=== PATIENT | female | born 1980 | race Caucasian/White ===

== ENCOUNTER 2016-01-27 08:47 | Inpatient (IN) | payer MEDICAID ==
[~2016-01-27] VITALS: Ht 147.3 cm; Wt 67.5 kg
[2016-01-27 09:06] VITALS: Ht 147.3 cm; Wt 67.5 kg
[2016-01-27] MEDS ORDERED: PRENAT PO (09:08)
[2016-01-27] MEDS: LACTATED RINGER'S 1,000 ML IV SCH ×4 (09:37→18:57)
[2016-01-27 09:58] LABS: ADD UMIC YES; URINE BILIRUBIN (Dip) NEGATIVE (NEGATIVE); URINE BLOOD (Dip) 3+ (NEGATIVE); URINE COLOR LT. YELLOW (YELLOW); URINE KETONES (Dip) 15 (NEGATIVE); URINE LEUKOCYTE ESTERASE (Dip) TRACE (NEGATIVE); URINE NITRITE (Dip) NEGATIVE (NEGATIVE); URINE TOTAL PROTEIN (Dip) NEGATIVE (NEGATIVE); URINE UROBILINOGEN (Dip) 0.2 E.U./dL (0.1-1.0)
[2016-01-27 10:09] LABS: BACTERIA,URINE FEW; SQUAMOUS EPITHELIAL CELL,UR FEW
--- NOTE | 2016-01-27 10:30 | RADRPT ---
PROCEDURE: Limited OB ultrasound CLINICAL INDICATION: Vaginal bleeding, placenta previa TECHNIQUE: Sonographic evaluation to assess the placenta was performed. Transabdominal imaging of the gravid uterus was performed. COMPARISON: No prior exam is available for comparison. FINDINGS: There is a single live intrauterine with cardiac activity, with a heart rate o f 151 bpm. position is breech. The placenta is posterior. There is a complete placenta prev ia. The cervix is closed with a length of 4.5 cm. IMPRESSION: 1. Complete placenta previa. 2. Breech presentation. 3. The cervix is closed with a length of 4.5 cm. RPTAT: HH .Wilma Cristina MD, MD Date Time Electronically viewed and signed by .Wilma Cristina MD, on 01/27/2016 10:30 .G/
[2016-01-27 10:45] LABS: BASOPHILS % 0.4 % (0.0-2.0); EOSINOPHILS # 0.1 10^3/ul (0.0-0.5); EOSINOPHILS % 1.3 % (0.0-7.0); HEMATOCRIT 32.7 % (37.0-47.0); HEMOGLOBIN 11.1 g/dl (12.0-16.0); LYMPHOCYTES # 1.6 10^3/ul (0.8-2.9); LYMPHOCYTES % 14.9 % (15.0-51.0); MEAN CORPUSCULAR HEMOGLOBIN 29.7 pg (29.0-33.0); MEAN CORPUSCULAR HGB CONC 33.8 g/dl (32.0-37.0); MEAN CORPUSCULAR VOLUME 87.8 fl (82.0-101.0); MEAN PLATELET VOLUME 8.1 fl (7.4-10.4); MONOCYTE # 0.8 10^3/ul (0.3-0.9); MONOCYTES % 7.8 % (0.0-11.0); NEUTROPHILS % 75.6 % (39.0-77.0); PLATELET COUNT 288 10^3/UL (140-440); RED BLOOD COUNT 3.72 10^6/ul (4.20-5.40); RED CELL DISTRIBUTION WIDTH 14.3 % (11.5-14.5); UNCORRECTED WBC 10.5 10^3/ul (4.8-10.8); WHITE BLOOD COUNT 10.5 10^3/ul (4.8-10.8)
[2016-01-27 10:47] LABS: CONDITION 1
[2016-01-27] MEDS ORDERED: MAGNESIUM SULFATE 4 GM/100 ML 100 ML IV ONE (11:30)
[2016-01-27] MEDS: MAGNESIUM SULFATE 20 GM/500 ML 500 ML IV SCH ×2 (11:53→22:00)
[2016-01-27] MEDS: BETAMET NA PHOS/AC(6 MG/ML) 5ML INJ IM SCH (16:54)
[2016-01-28] MEDS: LACTATED RINGER'S 1,000 ML IV SCH ×6 (01:30→18:57)
[2016-01-28] MEDS: MAGNESIUM SULFATE 20 GM/500 ML 500 ML IV SCH ×2 (07:10→17:30)
--- NOTE | 2016-01-28 11:56 | HP ---
DATE OF ADMISSION: 01/27/2016 HISTORY OF PRESENT ILLNESS: I was requested to talk to Clotilde Dowd by the dental assistant medical assistant, Dr. España, for prematurity at 26 and 5/7 weeks with vaginal bleeding secondary to placenta previa. Mom is on magnesium sulfate and started on betamethasone. Mom is a 35-year-old 4, para 2, 1 and has 2 living children, 9 and 14-year-old at home. No history of diabetes or hypertension during . She has complete placenta previa and has vaginal bleeding now. EDC is 04/30/2016. Membranes intact. She is B, Rh positive, RPR nonreactive, hepatitis B surface antigen negative, and rubella immune. She remains afebrile since admission yesterday. I have spoken to the mother with the help of an autocad electrical designer and explained to her about very premature babies with extreme low weight, survival of about 75 to 80%, and high risk for long-term problems with oxygen dependency and chronic lung disease, hearing problems, and vision problems, with retinopathy of prematurity and neurological problems with delayed milestones, cerebral palsy, low intelligence, feeding problems and need for special followup in High Risk Followup clinic and by the [facility] after discharge. I have explained to her about respiratory distress syndrome, oxygen dependency, ventilatory assistance, high risk for oxygen high risk for infections, antibiotic therapy, high risk for necrotizing enterocolitis and feeding problems, is high risk for intraventricular hemorrhage and developmental problems, retinopathy of prematurity, hearing problems, jaundice, phototherapy, frequent need for blood product usage and general treatment plan and general procedures done in NICU. Mom seems to understand the severity of the situation and complications with very premature and extreme low weight babies and had appropriate questions that were answered. Thank you very much for allowing me to take part in the care of this patient. We will follow the mom and the baby as needed, attend the delivery and take care of the baby in NICU. Dictated By: NAZ GOODSON/CISCO Conf#: [id number] DID#: [id number] MTDD
--- NOTE | 2016-01-28 12:01 | CONS ---
DATE OF ADMISSION: 01/27/2016 DATE OF CONSULTATION: 01/28/2016 HISTORY OF PRESENT ILLNESS: The patient is a 35-year-old G4 with 2 full term pregnancies, 1 miscarr iage. She is currently at 26 weeks. She was presented with complaint of vaginal bleeding. She has complete placenta previa. She was subsequently placed on magnesium sulfate for tocolysis. She rec eived betamethasone second dose of betamethasone is due today at 4:00 p.m. This morning she had mckenna e change in vision, which is most likely secondary to magnesium sulfide and therefore it will be sto pped. Cervical exam shows the cervix to be closed, about 4 cm dilated. Currently, since the admission to the hospital, she has not had vaginal bleeding. PAST SURGICAL HISTORY: Not significant. OB HISTORY: Per above. REVIEW OF SYSTEMS: Negative except for what is mentioned above. VITAL SIGNS: Stable. PHYSICAL EXAMINATION: Deferred. heart tones reassuring for the gestational age, contractions none. Ultrasound per above. IMPRESSION: Intrauterine at 26 weeks with contractions and vaginal bleeding, comp lete placenta previa on magnesium sulfate which was ordered to be discontinued secondary to change i n vision. She is to receive the second dose of betamethasone today. RECOMMENDATIONS: 1. Discontinue magnesium sulfate. 2. Continue with the hospital care until 24 hours after the second dose of betamethasone. After th at, if the patient is asymptomatic without contractions and no vaginal bleeding, she can be discharg ed home for close followup with her referring MD. Also, she was encouraged to be on modified bed re st at home and present to the hospital with any evidence of labor or vaginal bleeding. Dictated By: NICOLE SALCIDO/NTS Conf#: [id number] DID#: [id number]
[2016-01-28] MEDS: BETAMET NA PHOS/AC(6 MG/ML) 5ML INJ IM SCH (17:29)
[2016-01-29] MEDS: LACTATED RINGER'S 1,000 ML IV SCH ×6 (01:30→23:20)
[2016-01-30] MEDS: LACTATED RINGER'S 1,000 ML IV SCH ×3 (07:16→21:14)
[2016-01-30] MEDS: FERROUS SULFATE (EC) 325 MG TAB PO SCH (09:46)
[2016-01-30] MEDS: MULTIVIT/MIN/FOLATE/IRON/PREN TAB PO SCH (09:46)
[2016-01-30] MEDS: AMOXICILLIN 500 MG CAP PO SCH (21:53)
[2016-01-31] MEDS: LACTATED RINGER'S 1,000 ML IV SCH ×6 (00:01→20:01)
[2016-01-31] MEDS: AMOXICILLIN 500 MG CAP PO SCH ×3 (06:05→22:22)
[2016-01-31] MEDS: FERROUS SULFATE (EC) 325 MG TAB PO SCH (08:59)
[2016-01-31] MEDS: MULTIVIT/MIN/FOLATE/IRON/PREN TAB PO SCH (08:59)
[2016-02-01] MEDS: LACTATED RINGER'S 1,000 ML IV SCH ×4 (03:35→16:40)
[2016-02-01] MEDS: AMOXICILLIN 500 MG CAP PO SCH ×3 (05:55→22:25)
[2016-02-01] MEDS: FERROUS SULFATE (EC) 325 MG TAB PO SCH (09:09)
[2016-02-01] MEDS: MULTIVIT/MIN/FOLATE/IRON/PREN TAB PO SCH (09:09)
[2016-02-01] MEDS: ACETAMINOPHEN 325 MG TAB PO PRN (10:41)
--- NOTE | 2016-02-01 13:22 | PERINOTE ---
Date/Time of Note Date/Time of Note DATE: 02/01/16 TIME: 13:13 Assessment/Recommendations Other Assessments Premature uterine contractions, now largely resolved Placenta previa with multiple prior episodes of bleeding. (Patient hs not had glucose screening) Recommendations: I would favor observing this patient in the hospital for a longer period ( potentially until delivery) both for bleeding and for uterine contractions. I explained to her and her the risk of catastrophic bleeding involved in a placenta previa. Would deliver between 35 and 36 weeks GA by if she continues to have a placenta previa, earlier for bleeding or evidence of maternal or decompensation. Given the possibility of IUGR with the abnormal placentation, I would repeat the ultrasound for EFW every 3-4 weeks. I would perform a fasting blood glucose tomorrow AM to evaluate for gestational diabetes. OB Subjective Free Text/Dictaton Patient with known placenta previa is admitted for an episode of bleeding with uterine contractions. She reports two prior admissions at [facility] for this indication. HD# 6 IUP @ 27W2D Complaints/Overnight events No current bleeding Current Medications Current Medications Prenat Multivit/ Healthcare Representative/Iron/Folic Ac ( S) 1 tab DAILY PO Last administered on 02/01/16at 09:09; Admin Dose 1 TAB; Start 01/30/16 at 09:00 Ferrous Sulfate (Ferrous Sulfate (Ec)) 325 mg DAILY PO Last administered on at 09:09; Admin Dose 325 MG; Start 01/30/16 at 09:00 Amoxicillin 500 mg 500 mg Q8 PO Last administered on 02/01/16at 05:55; Admin Dose 500 MG; Start 01/30/16 at 22:00 Lactated Ringer's (Lr) 1,000 ml @ 125 mls/hr Q8H IV Last administered on 01/31at 11:30; Admin Dose 125 MLS/HR; Start 01/30/16 at 21:12 Acetaminophen (Tylenol Tab) 650 mg Q4H PRN PO PAIN AND OR ELEVATED TEMP Last administered on 02/01/16at 10:41; Admin Dose 650 MG; Start 02/01/16 at 10:30 OB Admission Exam Physical Exam Vitals: BP: 102/66 P: 84 R: 20 T: 98.5 Abdomen: WNL Heart Rate: 150's Accelerations: Accelerations Present Decelerations: No Decelerations Varibility: Moderate Contractions on Admission: >10 Minutes Apart Copies To: CC: TIMUR BATEMAN MD, MARIE H MD Feb 01, 2016 13:22
[2016-02-01] MEDS ORDERED: MAGNESIUM SULFATE 4 GM/100 ML 100 ML IVPB ONE (16:00)
[2016-02-01] MEDS: MAGNESIUM SULFATE 20 GM/500 ML 500 ML IV SCH (16:58)
[2016-02-02] MEDS: MAGNESIUM SULFATE 20 GM/500 ML 500 ML IV SCH ×3 (03:42→23:46)
[2016-02-02] MEDS: LACTATED RINGER'S 1,000 ML IV SCH ×2 (04:45→17:40)
[2016-02-02] MEDS: AMOXICILLIN 500 MG CAP PO SCH ×3 (05:58→21:56)
[2016-02-02] MEDS: FERROUS SULFATE (EC) 325 MG TAB PO SCH (08:37)
[2016-02-02] MEDS: MULTIVIT/MIN/FOLATE/IRON/PREN TAB PO SCH (08:38)
[2016-02-03] MEDS: AMOXICILLIN 500 MG CAP PO SCH ×3 (06:17→22:23)
[2016-02-03] MEDS: LACTATED RINGER'S 1,000 ML IV SCH ×2 (06:18→19:53)
[2016-02-03] MEDS: FERROUS SULFATE (EC) 325 MG TAB PO SCH (09:01)
[2016-02-03] MEDS: MULTIVIT/MIN/FOLATE/IRON/PREN TAB PO SCH (09:01)
[2016-02-03] MEDS: SENNA TAB PO SCH ×2 (14:15→20:57)
[2016-02-03] MEDS: MAGNESIUM SULFATE 20 GM/500 ML 500 ML IV SCH (20:58)
[2016-02-04] MEDS: MAGNESIUM SULFATE 20 GM/500 ML 500 ML IV SCH ×3 (04:30→17:02)
[2016-02-04] MEDS: AMOXICILLIN 500 MG CAP PO SCH ×3 (06:11→21:37)
[2016-02-04] MEDS: LACTATED RINGER'S 1,000 ML IV SCH ×2 (08:31→17:03)
[2016-02-04] MEDS: FERROUS SULFATE (EC) 325 MG TAB PO SCH (09:18)
[2016-02-04] MEDS: MULTIVIT/MIN/FOLATE/IRON/PREN TAB PO SCH (09:18)
[2016-02-04] MEDS: SENNA TAB PO SCH ×2 (09:19→21:36)
[2016-02-05] MEDS: MAGNESIUM SULFATE 20 GM/500 ML 500 ML IV SCH ×4 (02:44→23:59)
[2016-02-05] MEDS: LACTATED RINGER'S 1,000 ML IV SCH ×2 (02:45→15:10)
[2016-02-05] MEDS: AMOXICILLIN 500 MG CAP PO SCH ×3 (06:14→22:13)
[2016-02-05] MEDS: SENNA TAB PO SCH ×2 (09:00→21:07)
[2016-02-05] MEDS: FERROUS SULFATE (EC) 325 MG TAB PO SCH (09:19)
[2016-02-05] MEDS: MULTIVIT/MIN/FOLATE/IRON/PREN TAB PO SCH (09:19)
--- NOTE | 2016-02-05 10:18 | PN ---
Date/Time of Note Date/Time of Note DATE: 02/05/16 TIME: 10:17 OB Subjective Subjective Subjective Indication for admission placenta previa that has been no bleeding since last 24 hours which continue expecting management and observation for leading TAHIRA SUN MD Feb 05, 2016 10:18
[2016-02-05] MEDS: MICONAZOLE 100 MG VAG SUPP VAG SCH (21:07)
[2016-02-06] MEDS: LACTATED RINGER'S 1,000 ML IV SCH ×2 (03:25→17:31)
[2016-02-06] MEDS: FERROUS SULFATE (EC) 325 MG TAB PO SCH (08:57)
[2016-02-06] MEDS: MULTIVIT/MIN/FOLATE/IRON/PREN TAB PO SCH (08:57)
[2016-02-06] MEDS: SENNA TAB PO SCH ×2 (08:57→21:31)
[2016-02-06] MEDS: MAGNESIUM SULFATE 20 GM/500 ML 500 ML IV SCH ×3 (08:58→20:11)
--- NOTE | 2016-02-06 14:01 | PN ---
Date/Time of Note Date/Time of Note DATE: 02/06/16 TIME: 14:01 OB Subjective Subjective Subjective Vital sign a stable resting no bleeding which continue expecting management Laboratory Tests Test 02/06/16 00:20 02/06/16 12:20 Magnesium Level 4.2mg/dl 4.3mg/dl Current Medications Medications (Trade) Dose Ordered Sig/Sara Route PRN Reason Start Time Stop Time Status Last Admin Dose Admin Lactated Ringer's 1,000 ml @ 125 mls/hr Q8H IV 01/27/16 09:30 01/30/16 18:20 DC 01/30/16 14:33 Lactated Ringer's 1,000 ml @ 125 mls/hr Q8H IV 01/27/16 10:57 01/29/16 15:26 DC 01/29/16 07:29 Magnesium Sulfate 100 ml @ 200 mls/hr ONCE ONCE IV 01/27/16 11:30 01/27/16 11:59 DC 01/27/16 11:29 Magnesium Sulfate (Magnesium Sulfate 20 Gm/500 ml) 500 ml @ 50 mls/hr Q10H IV 01/27/16 11:30 01/29/16 01:33 DC 01/28/16 07:10 Betamethasone Acet/Betameth SodPhos (Celestone Soluspan) 12 mg Q24H IM 01/27/16 16:30 01/28/16 16:31 DC 01/28/16 17:29 Prenat Multivit/ Shipping Packer/Iron/Folic Ac ( S) 1 tab DAILY PO 01/30/16 09:00 02/06/16 08:57 Ferrous Sulfate (Ferrous Sulfate (Ec)) 325 mg DAILY PO 01/30/16 09:00 02/06/16 08:57 Amoxicillin 500 mg 500 mg Q8 PO 01/30/16 22:00 02/06/16 00:00 DC 02/05/16 22:13 Lactated Ringer's (Lr) 1,000 ml @ 75 mls/hr [id number] IV 01/30/16 21:12 02/06/16 03:25 Acetaminophen 650 mg 650 mg Q4H PRN PO PAIN AND OR ELEVATED TEMP 02/01/16 10:30 02/01/16 10:41 Magnesium Sulfate 100 ml @ 200 mls/hr ONCE ONCE IVPB 02/01/16 16:00 12/17/16 16:29 DC 02/01/16 16:28 Magnesium Sulfate (Magnesium Sulfate 20 Gm/500 ml) 500 ml @ 50 mls/hr Q10H IV 02/01/16 16:30 02/06/16 08:58 Senna (Senokot) 2 tab BID PO 02/03/16 14:30 02/06/16 08:57 Miconazole (Monistat-7) 1 supp HS VAG 02/05/16 21:00 02/11/16 21:01 02/05/16 21:07 TAHIRA SUN MD Feb 06, 2016 14:01
[2016-02-06] MEDS ORDERED: MAGNESIUM SULFATE 4 GM/100 ML 100 ML IVPB ONE (20:30)
[2016-02-06] MEDS: MICONAZOLE 100 MG VAG SUPP VAG SCH (21:31)
[2016-02-07] MEDS: LACTATED RINGER'S 1,000 ML IV SCH ×2 (06:15→18:47)
[2016-02-07] MEDS: MAGNESIUM SULFATE 20 GM/500 ML 500 ML IV SCH (06:16)
[2016-02-07] MEDS: MULTIVIT/MIN/FOLATE/IRON/PREN TAB PO SCH (08:39)
[2016-02-07] MEDS: FERROUS SULFATE (EC) 325 MG TAB PO SCH (08:39)
[2016-02-07] MEDS: SENNA TAB PO SCH ×2 (08:39→21:18)
--- NOTE | 2016-02-07 14:54 | PN ---
Date/Time of Note Date/Time of Note DATE: 02/07/16 TIME: 14:51 OB Subjective Subjective Subjective 27 weeks complicated with placenta previa with uterine contraction on admission she was placed on magnesium sulfate which was discontinued at 10:40 AM today perinatology recommended to start Procardia as of 6:00 PM today currently patient has less than 4 contraction per our mildly felt and no further bleeding TAHIRA SUN MD Feb 07, 2016 14:54
--- NOTE | 2016-02-07 14:55 | RADRPT ---
PROCEDURE: US OB. CLINICAL INDICATION: Size and dates , complete placenta previa TECHNIQUE: Multiple sonographic images of the pelvis and gravid uterus were obtained. The images were reviewed on a PACS workstation. COMPARISON: 01/27/16 FINDINGS: There is a single viable intrauterine gestation. Cardiac activity is present with 126 beats per min brandy. There is a vertex presentation. The placenta is posterior. There is complete placenta previa. Measurements were made in order to determine age. The results are as follows: BPD =7.2 cm HC =26.2 cm AC =24.8 cm FL =4.8 cm Estimated gestational age of approximately 28 weeks and 1 day based on ultrasound measurements. Clinical age: 28 weeks and 1 day. The estimated date of delivery is 04/30/16, based on ultrasound measurements. The EFW = 1165 g, 33%, based on LMP age. RPTAT: AA IMPRESSION: Single viable intrauterine gestation of approximately 28 weeks and 1 day based on ultrasound measur ements. Posterior with complete placenta previa. .Bismark Sykes MD, MD Date Time Electronically viewed and signed by .Bismark Sykes MD, on 02/07/2016 14:55 .S/
[2016-02-07] MEDS: NIFEdipine 10 MG CAP PO SCH (17:29)
[2016-02-07] MEDS ORDERED: NIFEdipine 10 MG CAP PO SCH (18:00)
[2016-02-07] MEDS: MICONAZOLE 100 MG VAG SUPP VAG SCH (21:18)
[2016-02-08] MEDS: NIFEdipine 10 MG CAP PO SCH ×4 (00:02→17:45)
[2016-02-08] MEDS: LACTATED RINGER'S 1,000 ML IV SCH ×2 (07:42→19:41)
[2016-02-08] MEDS: FERROUS SULFATE (EC) 325 MG TAB PO SCH (08:54)
[2016-02-08] MEDS: MULTIVIT/MIN/FOLATE/IRON/PREN TAB PO SCH (08:54)
[2016-02-08] MEDS: SENNA TAB PO SCH ×2 (08:54→21:21)
[2016-02-08 12:28] LABS: BASOPHILS % 0.3 % (0.0-2.0); EOSINOPHILS # 0.1 10^3/ul (0.0-0.5); HEMATOCRIT 36.3 % (37.0-47.0); HEMOGLOBIN 12.2 g/dl (12.0-16.0); LYMPHOCYTES # 1.6 10^3/ul (0.8-2.9); LYMPHOCYTES % 14.1 % (15.0-51.0); MEAN CORPUSCULAR HGB CONC 33.7 g/dl (32.0-37.0); MEAN PLATELET VOLUME 7.4 fl (7.4-10.4); MONOCYTE # 0.7 10^3/ul (0.3-0.9); MONOCYTES % 6.4 % (0.0-11.0); NEUTROPHIL # 8.7 10^3/ul (1.6-7.5); NEUTROPHILS % 78.2 % (39.0-77.0); PLATELET COUNT 291 10^3/UL (140-440); RED BLOOD COUNT 4.07 10^6/ul (4.20-5.40); UNCORRECTED WBC 11.2 10^3/ul (4.8-10.8); WHITE BLOOD COUNT 11.2 10^3/ul (4.8-10.8)
[2016-02-08 12:40] LABS: CONDITION 1
[2016-02-08 12:42] LABS: INR 0.99; PROTIME 13.1 Sec (12.2-14.2)
[2016-02-08 12:43] LABS: ALBUMIN 3.4 g/dl (3.3-4.9); PARTIAL THROMBOPLASTIN TIME 25.7 Sec (25.0-35.0)
[2016-02-08 12:44] LABS: POTASSIUM 4.1 mmol/L (3.5-5.1)
[2016-02-08 12:46] LABS: BILIRUBIN,INDIRECT 0.3 mg/dl (0-1.1); BILIRUBIN,TOTAL 0.3 mg/dl (0.2-1.3); CREATININE 0.43 mg/dl (0.44-1.00); TOTAL PROTEIN 6.8 g/dl (6.1-8.1)
[2016-02-08 12:47] LABS: CALCIUM 9.3 mg/dl (8.4-10.2)
--- NOTE | 2016-02-08 12:58 | PN ---
Date/Time of Note Date/Time of Note DATE: 02/08/16 TIME: 12:55 OB Subjective Subjective Subjective Vital sign is stable no bleeding patient in bed rest no complain of contraction currently on nifedipine 20 mg every 6 hours. TAHIRA SUN MD Feb 08, 2016 12:58
[2016-02-08] MEDS: MICONAZOLE 100 MG VAG SUPP VAG SCH (21:21)
[2016-02-09] MEDS: NIFEdipine 10 MG CAP PO SCH ×4 (00:14→17:54)
[2016-02-09] MEDS: SENNA TAB PO SCH ×2 (08:55→20:48)
[2016-02-09] MEDS: FERROUS SULFATE (EC) 325 MG TAB PO SCH (08:55)
[2016-02-09] MEDS: MULTIVIT/MIN/FOLATE/IRON/PREN TAB PO SCH (08:55)
[2016-02-09] MEDS: LACTATED RINGER'S 1,000 ML IV SCH ×2 (09:05→17:43)
--- NOTE | 2016-02-09 11:20 | PN ---
Date/Time of Note Date/Time of Note DATE: 02/09/16 TIME: 11:18 OB Subjective Subjective Subjective CONDITION NO CHANGE OF YESTERDAY,WILL CONTINUE EXPECTING MANAGEMENT TAHIRA SUN MD Feb 09, 2016 11:20
[2016-02-09] MEDS: MICONAZOLE 100 MG VAG SUPP VAG SCH (20:48)
[2016-02-10] MEDS: NIFEdipine 10 MG CAP PO SCH ×4 (00:08→18:22)
[2016-02-10] MEDS: LACTATED RINGER'S 1,000 ML IV SCH ×2 (06:06→19:32)
[2016-02-10] MEDS: FERROUS SULFATE (EC) 325 MG TAB PO SCH (08:42)
[2016-02-10] MEDS: MULTIVIT/MIN/FOLATE/IRON/PREN TAB PO SCH (08:43)
[2016-02-10] MEDS: SENNA TAB PO SCH ×2 (08:43→21:31)
--- NOTE | 2016-02-10 10:43 | PN ---
Date/Time of Note Date/Time of Note DATE: 02/10/16 TIME: 10:39 OB Subjective Subjective Subjective vital sign stable ,afebrile ,no more than one or two contraction per hour will continue present treatment with Procardia 20MG Q 6 H. TAHIRA SUN MD Feb 10, 2016 10:43
[2016-02-10] MEDS: MICONAZOLE 100 MG VAG SUPP VAG SCH (21:31)
[2016-02-11] MEDS: NIFEdipine 10 MG CAP PO SCH ×4 (00:04→17:43)
[2016-02-11] MEDS: MULTIVIT/MIN/FOLATE/IRON/PREN TAB PO SCH (09:16)
[2016-02-11] MEDS: FERROUS SULFATE (EC) 325 MG TAB PO SCH (09:17)
[2016-02-11] MEDS: SENNA TAB PO SCH ×2 (09:17→21:14)
[2016-02-11] MEDS: LACTATED RINGER'S 1,000 ML IV SCH ×2 (10:11→21:25)
[2016-02-11] MEDS: BETAMET NA PHOS/AC(6 MG/ML) 5ML INJ IM SCH (16:27)
[2016-02-11] MEDS: MICONAZOLE 100 MG VAG SUPP VAG SCH (21:13)
[2016-02-12] MEDS: NIFEdipine 10 MG CAP PO SCH ×4 (00:21→17:41)
[2016-02-12] MEDS: LACTATED RINGER'S 1,000 ML IV SCH ×2 (08:38→17:41)
[2016-02-12] MEDS: FERROUS SULFATE (EC) 325 MG TAB PO SCH (08:38)
[2016-02-12] MEDS: MULTIVIT/MIN/FOLATE/IRON/PREN TAB PO SCH (08:38)
[2016-02-12] MEDS: SENNA TAB PO SCH ×2 (08:38→21:19)
[2016-02-12] MEDS: BETAMET NA PHOS/AC(6 MG/ML) 5ML INJ IM SCH (16:16)
[2016-02-13] MEDS: NIFEdipine 10 MG CAP PO SCH ×4 (06:01→17:50)
[2016-02-13] MEDS: LACTATED RINGER'S 1,000 ML IV SCH (06:02)
[2016-02-13] MEDS: MULTIVIT/MIN/FOLATE/IRON/PREN TAB PO SCH (08:58)
[2016-02-13] MEDS: FERROUS SULFATE (EC) 325 MG TAB PO SCH (08:58)
[2016-02-13] MEDS: SENNA TAB PO SCH ×2 (08:58→21:01)
[2016-02-14] MEDS: NIFEdipine 10 MG CAP PO SCH ×4 (06:01→18:03)
[2016-02-14] MEDS: MULTIVIT/MIN/FOLATE/IRON/PREN TAB PO SCH (09:17)
[2016-02-14] MEDS: FERROUS SULFATE (EC) 325 MG TAB PO SCH (09:17)
[2016-02-14] MEDS: SENNA TAB PO SCH ×2 (09:17→20:58)
[2016-02-14] MEDS ORDERED: LACTATED RINGER'S 1,000 ML IV ONE (18:00)
[2016-02-14] MEDS: LACTATED RINGER'S 1,000 ML IV SCH (19:00)
[2016-02-15] MEDS: NIFEdipine 10 MG CAP PO SCH ×4 (00:03→17:52)
[2016-02-15] MEDS: LACTATED RINGER'S 1,000 ML IV SCH ×3 (03:05→19:01)
[2016-02-15] MEDS: SENNA TAB PO SCH ×2 (09:00→21:12)
[2016-02-15] MEDS: MULTIVIT/MIN/FOLATE/IRON/PREN TAB PO SCH (09:22)
[2016-02-15] MEDS: FERROUS SULFATE (EC) 325 MG TAB PO SCH (09:22)
--- NOTE | 2016-02-15 14:13 | QN ---
Documentation Comment As noted previously (see my note of 01/31), I would favor continued hospitalization for this patient until delivery due to the risk of catastrophic bleeding with placenta previa, especially as she has had several prior episodes of bleeding. BRONWYN RABAGO MD Feb 15, 2016 14:13
[2016-02-16] MEDS: NIFEdipine 10 MG CAP PO SCH ×4 (00:19→17:51)
[2016-02-16] MEDS: LACTATED RINGER'S 1,000 ML IV SCH ×3 (04:59→21:27)
[2016-02-16] MEDS: SENNA TAB PO SCH ×2 (09:23→21:31)
[2016-02-16] MEDS: FERROUS SULFATE (EC) 325 MG TAB PO SCH (09:23)
[2016-02-16] MEDS: MULTIVIT/MIN/FOLATE/IRON/PREN TAB PO SCH (09:23)
[2016-02-17] MEDS: NIFEdipine 10 MG CAP PO SCH ×4 (00:09→17:35)
[2016-02-17] MEDS: LACTATED RINGER'S 1,000 ML IV SCH ×4 (05:18→21:21)
[2016-02-17] MEDS: MULTIVIT/MIN/FOLATE/IRON/PREN TAB PO SCH (08:49)
[2016-02-17] MEDS: FERROUS SULFATE (EC) 325 MG TAB PO SCH (08:49)
[2016-02-17] MEDS: SENNA TAB PO SCH ×2 (08:50→21:22)
[2016-02-18] MEDS: NIFEdipine 10 MG CAP PO SCH ×5 (00:04→23:48)
[2016-02-18] MEDS: LACTATED RINGER'S 1,000 ML IV SCH ×3 (05:29→21:14)
[2016-02-18] MEDS: SENNA TAB PO SCH ×2 (09:22→23:48)
[2016-02-18] MEDS: MULTIVIT/MIN/FOLATE/IRON/PREN TAB PO SCH (09:22)
[2016-02-18] MEDS: FERROUS SULFATE (EC) 325 MG TAB PO SCH (09:22)
[2016-02-19] MEDS: LACTATED RINGER'S 1,000 ML IV SCH ×3 (04:54→21:40)
[2016-02-19] MEDS: NIFEdipine 10 MG CAP PO SCH ×3 (06:28→18:02)
[2016-02-19] MEDS: FERROUS SULFATE (EC) 325 MG TAB PO SCH (08:50)
[2016-02-19] MEDS: SENNA TAB PO SCH ×2 (08:50→21:17)
[2016-02-19] MEDS: MULTIVIT/MIN/FOLATE/IRON/PREN TAB PO SCH (08:50)
[2016-02-20] MEDS: NIFEdipine 10 MG CAP PO SCH ×4 (00:08→18:00)
[2016-02-20] MEDS: LACTATED RINGER'S 1,000 ML IV SCH ×3 (05:41→22:28)
[2016-02-20] MEDS: SENNA TAB PO SCH ×2 (09:32→21:40)
[2016-02-20] MEDS: FERROUS SULFATE (EC) 325 MG TAB PO SCH (09:32)
[2016-02-20] MEDS: MULTIVIT/MIN/FOLATE/IRON/PREN TAB PO SCH (09:32)
[2016-02-21] MEDS: NIFEdipine 10 MG CAP PO SCH ×4 (00:16→17:37)
[2016-02-21] MEDS: LACTATED RINGER'S 1,000 ML IV SCH ×3 (06:15→21:00)
[2016-02-21] MEDS: MULTIVIT/MIN/FOLATE/IRON/PREN TAB PO SCH (08:39)
[2016-02-21] MEDS: SENNA TAB PO SCH ×2 (08:39→21:02)
[2016-02-21] MEDS: FERROUS SULFATE (EC) 325 MG TAB PO SCH (08:39)
[2016-02-22] MEDS: NIFEdipine 10 MG CAP PO SCH ×5 (00:03→23:56)
[2016-02-22] MEDS: LACTATED RINGER'S 1,000 ML IV SCH ×2 (05:52→15:39)
[2016-02-22] MEDS: MULTIVIT/MIN/FOLATE/IRON/PREN TAB PO SCH (08:46)
[2016-02-22] MEDS: SENNA TAB PO SCH ×2 (08:46→21:00)
[2016-02-22] MEDS: FERROUS SULFATE (EC) 325 MG TAB PO SCH (08:46)
[2016-02-23] MEDS: LACTATED RINGER'S 1,000 ML IV SCH ×2 (04:34→17:40)
[2016-02-23] MEDS: NIFEdipine 10 MG CAP PO SCH ×4 (06:01→23:54)
[2016-02-23] MEDS: SENNA TAB PO SCH ×2 (08:56→21:09)
[2016-02-23] MEDS: MULTIVIT/MIN/FOLATE/IRON/PREN TAB PO SCH (08:56)
[2016-02-23] MEDS: FERROUS SULFATE (EC) 325 MG TAB PO SCH (08:56)
--- NOTE | 2016-02-23 21:22 | QN ---
Documentation Comment HD # 27. Complete previa, admitted for the duration after several episodes of bleeding.Recieved steroids 01/26, and 01/27 and a rescue dose 02/10 and 02/11. Was on Magnesium initially, now on Procardia. No bleeding. No UC's. NST q shift. Continuous toco. Pt in reasonably good spirits considering but really misses her children. PLan: Continue care. ELIDIA PRATHER MD Feb 23, 2016 21:22
[2016-02-24] MEDS: NIFEdipine 10 MG CAP PO SCH ×3 (06:07→18:09)
[2016-02-24] MEDS: LACTATED RINGER'S 1,000 ML IV SCH ×3 (08:15→20:04)
[2016-02-24] MEDS: FERROUS SULFATE (EC) 325 MG TAB PO SCH (08:30)
[2016-02-24] MEDS: SENNA TAB PO SCH ×2 (08:30→21:01)
[2016-02-24] MEDS: MULTIVIT/MIN/FOLATE/IRON/PREN TAB PO SCH (08:30)
[2016-02-25] MEDS: NIFEdipine 10 MG CAP PO SCH ×4 (00:04→17:39)
[2016-02-25] MEDS: LACTATED RINGER'S 1,000 ML IV SCH ×3 (04:14→20:36)
[2016-02-25] MEDS: FERROUS SULFATE (EC) 325 MG TAB PO SCH (09:25)
[2016-02-25] MEDS: MULTIVIT/MIN/FOLATE/IRON/PREN TAB PO SCH (09:25)
[2016-02-25] MEDS: SENNA TAB PO SCH ×2 (09:26→21:27)
--- NOTE | 2016-02-25 21:02 | PN ---
Date/Time of Note Date/Time of Note DATE: 02/25/16 TIME: 20:58 OB Subjective Subjective Subjective Patient has no complaint. OB Objective Objective Objective Afebrile VSS Strip Reactive Abdomen: WNL Heart Rate: 140's Accelerations: Accelerations Present Decelerations: No Decelerations Varibility: Moderate Contractions on Admission: None OB Assessment/Plan Reason for admission: other Other Assessment: Placenta previa Plan: Other Other plan: Continue with in hospital care. TIMUR BATEMAN MD Feb 25, 2016 21:01
[2016-02-26] MEDS: NIFEdipine 10 MG CAP PO SCH ×4 (01:12→17:29)
[2016-02-26] MEDS: LACTATED RINGER'S 1,000 ML IV SCH ×3 (05:47→21:43)
[2016-02-26] MEDS: SENNA TAB PO SCH ×2 (08:38→21:43)
[2016-02-26] MEDS: MULTIVIT/MIN/FOLATE/IRON/PREN TAB PO SCH (08:38)
[2016-02-26] MEDS: FERROUS SULFATE (EC) 325 MG TAB PO SCH (08:38)
--- NOTE | 2016-02-26 14:13 | QN ---
Documentation Comment Patient has no complaint. Afebrile VSS Strip Reactive Continue with in hospital care. TIMUR BATEMAN MD Feb 26, 2016 14:12
[2016-02-27] MEDS: NIFEdipine 10 MG CAP PO SCH ×5 (00:28→23:56)
[2016-02-27] MEDS: LACTATED RINGER'S 1,000 ML IV SCH ×3 (05:29→20:39)
[2016-02-27] MEDS: FERROUS SULFATE (EC) 325 MG TAB PO SCH (08:56)
[2016-02-27] MEDS: MULTIVIT/MIN/FOLATE/IRON/PREN TAB PO SCH (08:56)
[2016-02-27] MEDS: SENNA TAB PO SCH ×2 (08:56→21:36)
--- NOTE | 2016-02-27 20:42 | QN ---
Documentation Comment Patient has no complaint. Afebrile VSS Strip Reactive Continue with in hospital care. TIMUR BATEMAN MD Feb 27, 2016 20:42
[2016-02-27 21:25] LABS: BASOPHILS % 0.4 % (0.0-2.0); EOSINOPHILS # 0.1 10^3/ul (0.0-0.5); EOSINOPHILS % 1.4 % (0.0-7.0); HEMATOCRIT 33.6 % (37.0-47.0); HEMOGLOBIN 11.6 g/dl (12.0-16.0); LYMPHOCYTES # 2.2 10^3/ul (0.8-2.9); LYMPHOCYTES % 20.6 % (15.0-51.0); MEAN CORPUSCULAR HEMOGLOBIN 30.2 pg (29.0-33.0); MEAN CORPUSCULAR HGB CONC 34.5 g/dl (32.0-37.0); MEAN CORPUSCULAR VOLUME 87.6 fl (82.0-101.0); MEAN PLATELET VOLUME 7.3 fl (7.4-10.4); MONOCYTE # 0.9 10^3/ul (0.3-0.9); MONOCYTES % 8.6 % (0.0-11.0); NEUTROPHIL # 7.3 10^3/ul (1.6-7.5); PLATELET COUNT 220 10^3/UL (140-440); RED BLOOD COUNT 3.83 10^6/ul (4.20-5.40); RED CELL DISTRIBUTION WIDTH 14.2 % (11.5-14.5); UNCORRECTED WBC 10.5 10^3/ul (4.8-10.8); WHITE BLOOD COUNT 10.5 10^3/ul (4.8-10.8)
[2016-02-27 21:26] LABS: CONDITION 1
[2016-02-27 21:39] LABS: ADD UMIC YES; URINE BILIRUBIN (Dip) NEGATIVE (NEGATIVE); URINE BLOOD (Dip) TRACE (NEGATIVE); URINE COLOR LT. YELLOW (YELLOW); URINE GLUCOSE (Dip) NEGATIVE (NEGATIVE); URINE KETONES (Dip) NEGATIVE (NEGATIVE); URINE LEUKOCYTE ESTERASE (Dip) NEGATIVE (NEGATIVE); URINE NITRITE (Dip) NEGATIVE (NEGATIVE); URINE TOTAL PROTEIN (Dip) NEGATIVE (NEGATIVE); URINE UROBILINOGEN (Dip) 0.2 E.U./dL (0.1-1.0)
[2016-02-27 22:09] LABS: BACTERIA,URINE FEW; SQUAMOUS EPITHELIAL CELL,UR MODERATE; URINE RBCS 0-2 /HPF (0)
[2016-02-28] MEDS: LACTATED RINGER'S 1,000 ML IV SCH ×3 (04:21→19:33)
[2016-02-28] MEDS: NIFEdipine 10 MG CAP PO SCH ×4 (05:58→23:53)
[2016-02-28] MEDS: FERROUS SULFATE (EC) 325 MG TAB PO SCH (08:52)
[2016-02-28] MEDS: MULTIVIT/MIN/FOLATE/IRON/PREN TAB PO SCH (08:52)
[2016-02-28] MEDS: SENNA TAB PO SCH ×2 (08:54→20:53)
--- NOTE | 2016-02-28 20:13 | QN ---
Documentation Comment Patient had some vaginal bleding this morning. No complaint now. Afebrile VSS Strip Reactive Continue with in hospital care. TIMUR BATEMAN MD Feb 28, 2016 20:12
[2016-02-29] MEDS: LACTATED RINGER'S 1,000 ML IV SCH ×3 (03:20→19:44)
[2016-02-29] MEDS: NIFEdipine 10 MG CAP PO SCH ×3 (06:04→17:37)
[2016-02-29] MEDS: FERROUS SULFATE (EC) 325 MG TAB PO SCH ×2 (08:52→20:48)
[2016-02-29] MEDS: MULTIVIT/MIN/FOLATE/IRON/PREN TAB PO SCH (08:52)
[2016-02-29] MEDS: SENNA TAB PO SCH ×2 (08:53→20:48)
--- NOTE | 2016-02-29 19:23 | QN ---
Documentation Comment Patient has slight vaginal bleeding last night. No complaint now. Afebrile VSS Strip Reactive Continue with present care. TIMUR BATEMAN MD Feb 29, 2016 19:22
[2016-03-01] MEDS: NIFEdipine 10 MG CAP PO SCH ×4 (00:12→17:57)
[2016-03-01] MEDS: LACTATED RINGER'S 1,000 ML IV SCH ×3 (03:36→20:51)
[2016-03-01] MEDS: MULTIVIT/MIN/FOLATE/IRON/PREN TAB PO SCH (09:10)
[2016-03-01] MEDS: SENNA TAB PO SCH ×2 (09:10→20:51)
[2016-03-01] MEDS: FERROUS SULFATE (EC) 325 MG TAB PO SCH ×2 (09:12→20:51)
--- NOTE | 2016-03-01 17:27 | QN ---
Documentation Comment No complaint. Afebrile VSS Tracing Reactive Continue with in hospital care. TIMUR BATEMAN MD Mar 01, 2016 17:27
[2016-03-02] MEDS: NIFEdipine 10 MG CAP PO SCH ×5 (00:13→23:39)
[2016-03-02] MEDS: LACTATED RINGER'S 1,000 ML IV SCH ×4 (04:28→22:07)
[2016-03-02] MEDS: FERROUS SULFATE (EC) 325 MG TAB PO SCH ×2 (08:40→20:55)
[2016-03-02] MEDS: MULTIVIT/MIN/FOLATE/IRON/PREN TAB PO SCH (08:40)
[2016-03-02] MEDS: SENNA TAB PO SCH ×2 (08:40→20:55)
--- NOTE | 2016-03-02 21:47 | QN ---
Documentation Comment Patient had contractions earlier, but denies any pain now. Afebrile VSS Strip Reactive Continue with in hospital care. TIMUR BATEMAN MD Mar 02, 2016 21:47
[2016-03-03] MEDS: LACTATED RINGER'S 1,000 ML IV SCH ×3 (05:53→22:43)
[2016-03-03] MEDS: NIFEdipine 10 MG CAP PO SCH ×3 (05:58→17:30)
[2016-03-03] MEDS: FERROUS SULFATE (EC) 325 MG TAB PO SCH ×2 (09:18→20:53)
[2016-03-03] MEDS: MULTIVIT/MIN/FOLATE/IRON/PREN TAB PO SCH (09:18)
[2016-03-03] MEDS: SENNA TAB PO SCH ×2 (09:19→20:53)
--- NOTE | 2016-03-03 12:59 | QN ---
Documentation Comment No complaint. Afebrile VSS Strip Reactive Continue with present care. TIMUR BATEMAN MD Mar 03, 2016 12:59
[2016-03-04] MEDS: NIFEdipine 10 MG CAP PO SCH ×5 (00:10→23:51)
[2016-03-04] MEDS: LACTATED RINGER'S 1,000 ML IV SCH ×3 (06:16→23:51)
[2016-03-04] MEDS: SENNA TAB PO SCH ×2 (08:46→21:13)
[2016-03-04] MEDS: MULTIVIT/MIN/FOLATE/IRON/PREN TAB PO SCH (08:46)
[2016-03-04] MEDS: FERROUS SULFATE (EC) 325 MG TAB PO SCH ×2 (08:46→21:13)
--- NOTE | 2016-03-04 19:09 | QN ---
Documentation Comment No complaint. Afebrile VSS Strip Reactive Continue with in hospital care. TIMUR BATEMAN MD Mar 04, 2016 19:09
[2016-03-05] MEDS: NIFEdipine 10 MG CAP PO SCH ×4 (06:22→23:50)
[2016-03-05] MEDS: LACTATED RINGER'S 1,000 ML IV SCH ×3 (08:15→23:51)
[2016-03-05] MEDS: FERROUS SULFATE (EC) 325 MG TAB PO SCH ×2 (08:47→21:18)
[2016-03-05] MEDS: MULTIVIT/MIN/FOLATE/IRON/PREN TAB PO SCH (08:48)
[2016-03-05] MEDS: SENNA TAB PO SCH ×2 (08:48→21:18)
--- NOTE | 2016-03-05 21:46 | QN ---
Documentation Comment No complaint Afebrile VSS Strip Reactive Continue present care. TIMUR BATEMAN MD Mar 05, 2016 21:46
[2016-03-06] MEDS: NIFEdipine 10 MG CAP PO SCH ×3 (06:36→17:51)
[2016-03-06] MEDS: LACTATED RINGER'S 1,000 ML IV SCH ×3 (07:33→20:29)
[2016-03-06] MEDS: SENNA TAB PO SCH ×2 (08:49→21:01)
[2016-03-06] MEDS: FERROUS SULFATE (EC) 325 MG TAB PO SCH ×2 (08:49→21:01)
[2016-03-06] MEDS: MULTIVIT/MIN/FOLATE/IRON/PREN TAB PO SCH (08:49)
--- NOTE | 2016-03-06 21:11 | QN ---
Documentation Comment No complaint. Afebrile VSS Strip Reactive Continue with present care. TIMUR BATEMAN MD Mar 06, 2016 21:11
[2016-03-07] MEDS: NIFEdipine 10 MG CAP PO SCH ×5 (00:10→23:38)
[2016-03-07] MEDS: SENNA TAB PO SCH ×2 (08:56→21:18)
[2016-03-07] MEDS: FERROUS SULFATE (EC) 325 MG TAB PO SCH ×2 (08:56→21:17)
[2016-03-07] MEDS: MULTIVIT/MIN/FOLATE/IRON/PREN TAB PO SCH (09:00)
[2016-03-07] MEDS: LACTATED RINGER'S 1,000 ML IV SCH ×2 (16:20→22:31)
--- NOTE | 2016-03-07 18:09 | QN ---
Documentation Comment No complaint. Afebrile BP 140/85 Strip Reactive Will start 24 hr urine collection and PIH labs. TIMUR BATEMAN MD Mar 07, 2016 18:09
[2016-03-07 18:35] LABS: BASOPHILS % 0.4 % (0.0-2.0); EOSINOPHILS # 0.2 10^3/ul (0.0-0.5); EOSINOPHILS % 2.1 % (0.0-7.0); HEMATOCRIT 33.9 % (37.0-47.0); HEMOGLOBIN 11.6 g/dl (12.0-16.0); LYMPHOCYTES # 1.9 10^3/ul (0.8-2.9); LYMPHOCYTES % 18.2 % (15.0-51.0); MEAN CORPUSCULAR HEMOGLOBIN 29.8 pg (29.0-33.0); MEAN CORPUSCULAR HGB CONC 34.2 g/dl (32.0-37.0); MEAN CORPUSCULAR VOLUME 87.1 fl (82.0-101.0); MEAN PLATELET VOLUME 7.4 fl (7.4-10.4); MONOCYTE # 0.8 10^3/ul (0.3-0.9); MONOCYTES % 7.5 % (0.0-11.0); NEUTROPHIL # 7.4 10^3/ul (1.6-7.5); NEUTROPHILS % 71.8 % (39.0-77.0); PLATELET COUNT 233 10^3/UL (140-440); RED CELL DISTRIBUTION WIDTH 14.4 % (11.5-14.5); UNCORRECTED WBC 10.3 10^3/ul (4.8-10.8); WHITE BLOOD COUNT 10.3 10^3/ul (4.8-10.8)
[2016-03-07 18:38] LABS: CONDITION 1
[2016-03-07 18:43] LABS: POTASSIUM 3.8 mmol/L (3.5-5.1)
[2016-03-07 18:44] LABS: CREATININE 0.58 mg/dl (0.44-1.00)
[2016-03-07 18:45] LABS: ALBUMIN/GLOBULIN RATIO 0.93; BILIRUBIN,INDIRECT 0.1 mg/dl (0-1.1); BILIRUBIN,TOTAL 0.1 mg/dl (0.2-1.3); TOTAL PROTEIN 6.2 g/dl (6.1-8.1); URIC ACID 5.6 mg/dl (3.1-7.9)
[2016-03-07 18:46] LABS: CALCIUM 8.7 mg/dl (8.4-10.2)
--- NOTE | 2016-03-08 01:53 | QN ---
Documentation Comment No complaint. Afebrile VSS Strip Reactive Plt, AST, ALT normal. Continue with 24 hr urine collection. TIMUR BATEMAN MD Mar 08, 2016 01:53
[2016-03-08] MEDS: NIFEdipine 10 MG CAP PO SCH ×4 (06:08→23:57)
[2016-03-08] MEDS: SENNA TAB PO SCH ×2 (09:23→20:45)
[2016-03-08] MEDS: FERROUS SULFATE (EC) 325 MG TAB PO SCH ×2 (09:23→20:44)
[2016-03-08] MEDS: MULTIVIT/MIN/FOLATE/IRON/PREN TAB PO SCH (09:23)
[2016-03-08] MEDS: LACTATED RINGER'S 1,000 ML IV SCH ×3 (19:00→22:22)
[2016-03-08 20:12] LABS: SCRET 0.58 mg/dl (0.44-1.00)
[2016-03-09] MEDS: NIFEdipine 10 MG CAP PO SCH ×3 (05:59→18:15)
[2016-03-09] MEDS: SENNA TAB PO SCH ×2 (08:51→21:27)
[2016-03-09] MEDS: FERROUS SULFATE (EC) 325 MG TAB PO SCH ×2 (08:51→21:27)
[2016-03-09] MEDS: MULTIVIT/MIN/FOLATE/IRON/PREN TAB PO SCH (08:51)
[2016-03-09] MEDS: LACTATED RINGER'S 1,000 ML IV SCH (11:38)
[2016-03-09] MEDS: ACETAMINOPHEN 325 MG TAB PO PRN ×2 (16:21→23:12)
[2016-03-09 18:56] LABS: BASOPHIL # 0.1 10^3/ul (0.0-0.1); BASOPHILS % 0.5 % (0.0-2.0); EOSINOPHILS # 0.2 10^3/ul (0.0-0.5); EOSINOPHILS % 1.7 % (0.0-7.0); HEMATOCRIT 36.4 % (37.0-47.0); HEMOGLOBIN 12.3 g/dl (12.0-16.0); LYMPHOCYTES # 2.1 10^3/ul (0.8-2.9); LYMPHOCYTES % 19.4 % (15.0-51.0); MEAN CORPUSCULAR HEMOGLOBIN 29.6 pg (29.0-33.0); MEAN CORPUSCULAR HGB CONC 33.7 g/dl (32.0-37.0); MEAN CORPUSCULAR VOLUME 87.7 fl (82.0-101.0); MEAN PLATELET VOLUME 7.4 fl (7.4-10.4); MONOCYTE # 0.9 10^3/ul (0.3-0.9); MONOCYTES % 8.1 % (0.0-11.0); NEUTROPHIL # 7.6 10^3/ul (1.6-7.5); NEUTROPHILS % 70.3 % (39.0-77.0); PLATELET COUNT 235 10^3/UL (140-440); RED BLOOD COUNT 4.15 10^6/ul (4.20-5.40); RED CELL DISTRIBUTION WIDTH 14.1 % (11.5-14.5); UNCORRECTED WBC 10.8 10^3/ul (4.8-10.8); WHITE BLOOD COUNT 10.8 10^3/ul (4.8-10.8)
[2016-03-09 19:06] LABS: ALBUMIN 3.2 g/dl (3.3-4.9)
[2016-03-09 19:09] LABS: ALBUMIN/GLOBULIN RATIO 0.96; BILIRUBIN,INDIRECT 0.1 mg/dl (0-1.1); BILIRUBIN,TOTAL 0.1 mg/dl (0.2-1.3); CREATININE 0.58 mg/dl (0.44-1.00); TOTAL PROTEIN 6.5 g/dl (6.1-8.1)
[2016-03-09 19:10] LABS: CALCIUM 9.1 mg/dl (8.4-10.2); URIC ACID 5.3 mg/dl (3.1-7.9)
[2016-03-09 19:11] LABS: CONDITION 1
[2016-03-09 19:13] LABS: ADD UMIC YES; URINE BILIRUBIN (Dip) NEGATIVE (NEGATIVE); URINE BLOOD (Dip) TRACE (NEGATIVE); URINE COLOR LT. YELLOW (YELLOW); URINE GLUCOSE (Dip) NEGATIVE (NEGATIVE); URINE KETONES (Dip) NEGATIVE (NEGATIVE); URINE LEUKOCYTE ESTERASE (Dip) NEGATIVE (NEGATIVE); URINE NITRITE (Dip) NEGATIVE (NEGATIVE); URINE TOTAL PROTEIN (Dip) NEGATIVE (NEGATIVE); URINE UROBILINOGEN (Dip) 0.2 E.U./dL (0.1-1.0)
--- NOTE | 2016-03-09 19:25 | QN ---
Documentation Comment Patient had headache earlier, feels better after taking Tylenol. Afebrile VSS Strip Reactive Await result of 24 hr urine protein. TIMUR BATEMAN MD Mar 09, 2016 19:25
[2016-03-09 19:42] LABS: BACTERIA,URINE MODERATE; URINE RBCS 0-2 /HPF (0)
[2016-03-09] MEDS ORDERED: ACETAMINOPHEN 500 MG TAB PO PRN (21:30)
[2016-03-10] MEDS: NIFEdipine 10 MG CAP PO SCH ×4 (00:15→17:48)
[2016-03-10] MEDS: LACTATED RINGER'S 1,000 ML IV SCH ×3 (01:07→16:32)
[2016-03-10] MEDS: SENNA TAB PO SCH ×2 (09:01→21:18)
[2016-03-10] MEDS: FERROUS SULFATE (EC) 325 MG TAB PO SCH ×2 (09:01→21:18)
[2016-03-10] MEDS: MULTIVIT/MIN/FOLATE/IRON/PREN TAB PO SCH (09:01)
[2016-03-10] MEDS: ACETAMINOPHEN 325 MG TAB PO PRN (15:57)
--- NOTE | 2016-03-10 22:19 | QN ---
Documentation Comment No complaint. Afebrile VSS Strip Reactive 24 hour urine protein is pending Continue with present care. TIMUR BATEMAN MD Mar 10, 2016 22:19
[2016-03-11] VITALS (8 sets, daily range): BP systolic 119–136; BP diastolic 66–84; PULSE 92–101; RESP 18–20
[2016-03-11] MEDS: NIFEdipine 10 MG CAP PO SCH ×2 (00:23→06:10)
[2016-03-11] MEDS: LACTATED RINGER'S 1,000 ML IV SCH ×4 (00:23→20:46)
[2016-03-11] MEDS: ACETAMINOPHEN 325 MG TAB PO PRN (04:38)
[2016-03-11] MEDS ORDERED: EPHEDrine SULFATE 50 MG/5 ML SYG ONE (07:00)
[2016-03-11] MEDS ORDERED: MAGNESIUM SULFATE 4 GM/100 ML 100 ML ONE (08:16)
[2016-03-11] MEDS: MAGNESIUM SULFATE 20 GM/500 ML 500 ML IV SCH ×3 (08:25→18:23)
[2016-03-11 08:47] LABS: ALBUMIN 3.3 g/dl (3.3-4.9)
[2016-03-11 08:48] LABS: BASOPHILS % 0.3 % (0.0-2.0); EOSINOPHILS # 0.2 10^3/ul (0.0-0.5); EOSINOPHILS % 1.6 % (0.0-7.0); HEMATOCRIT 38.3 % (37.0-47.0); HEMOGLOBIN 13.1 g/dl (12.0-16.0); LYMPHOCYTES # 2.3 10^3/ul (0.8-2.9); LYMPHOCYTES % 20.9 % (15.0-51.0); MEAN CORPUSCULAR HEMOGLOBIN 29.9 pg (29.0-33.0); MEAN CORPUSCULAR HGB CONC 34.1 g/dl (32.0-37.0); MEAN CORPUSCULAR VOLUME 87.6 fl (82.0-101.0); MEAN PLATELET VOLUME 7.3 fl (7.4-10.4); MONOCYTE # 0.7 10^3/ul (0.3-0.9); MONOCYTES % 6.3 % (0.0-11.0); NEUTROPHIL # 7.7 10^3/ul (1.6-7.5); NEUTROPHILS % 70.9 % (39.0-77.0); PLATELET COUNT 237 10^3/UL (140-440); POTASSIUM 4.2 mmol/L (3.5-5.1); RED BLOOD COUNT 4.37 10^6/ul (4.20-5.40); RED CELL DISTRIBUTION WIDTH 13.7 % (11.5-14.5); UNCORRECTED WBC 10.8 10^3/ul (4.8-10.8); WHITE BLOOD COUNT 10.8 10^3/ul (4.8-10.8)
[2016-03-11 08:50] LABS: BILIRUBIN,INDIRECT 0.1 mg/dl (0-1.1); BILIRUBIN,TOTAL 0.1 mg/dl (0.2-1.3); CREATININE 0.58 mg/dl (0.44-1.00)
[2016-03-11 08:51] LABS: CALCIUM 9.1 mg/dl (8.4-10.2); TOTAL PROTEIN 6.5 g/dl (6.1-8.1); URIC ACID 5.4 mg/dl (3.1-7.9)
[2016-03-11 08:54] LABS: ALBUMIN/GLOBULIN RATIO 1.03
[2016-03-11] MEDS ORDERED: CEFAZOLIN 2 GM/50 ML (PMX) 50 ML IVPB ONE (09:00)
[2016-03-11 09:01] LABS: CONDITION 1
[2016-03-11] MEDS ORDERED: PHENYLephrine (100 MCG/ML) 5ML SYG ONE (09:04)
[2016-03-11] MEDS ORDERED: METOCLOPRAMIDE 10 MG INJ ONE (09:04)
[2016-03-11] MEDS ORDERED: OXYTOCIN 10 UNIT INJ ONE ×2 (09:04→09:33)
[2016-03-11] MEDS ORDERED: FENTAnyl 50 MCG/ML VIAL ONE (09:04)
[2016-03-11] MEDS ORDERED: morphine SULFATE/PF (10 MG/10 ML) INJ ONE (09:04)
[2016-03-11 09:12] LABS: ALBUMIN 3.2 g/dl (3.3-4.9)
[2016-03-11 09:13] LABS: POTASSIUM 4.2 mmol/L (3.5-5.1)
[2016-03-11 09:15] LABS: BILIRUBIN,INDIRECT 0.1 mg/dl (0-1.1); BILIRUBIN,TOTAL 0.1 mg/dl (0.2-1.3); CREATININE 0.57 mg/dl (0.44-1.00)
[2016-03-11 09:16] LABS: CALCIUM 8.9 mg/dl (8.4-10.2); PHOSPHORUS 4.9 mg/dl (2.5-4.9); TOTAL PROTEIN 6.5 g/dl (6.1-8.1)
--- NOTE | 2016-03-11 09:44 | HP ---
DATE OF ADMISSION: 01/27/2016 HISTORY OF PRESENT ILLNESS: A 35-year-old female, 4, para 2, AB 1, estimated date of delive ry 04/30/2016, was admitted on 01/27/2016 because of vaginal bleeding and contractions associated wi th complete placenta previa. PAST MEDICAL HISTORY: Unremarkable. PAST SURGICAL HISTORY: Appendectomy. ALLERGIES: NO KNOWN ALLERGIES. FAMILY HISTORY: Noncontributory. PHYSICAL EXAMINATION: VITAL SIGNS: The patient is afebrile. Vital signs stable. HEAD, NECK, AND CHEST: Within normal limits. ABDOMEN: Soft, nontender, and gravid. EXTREMITIES: Within normal limits. NEUROLOGIC: Within normal limits. HOSPITAL COURSE: The patient was admitted due to complete previa. Since the patient would have vag inal bleeding and contractions on and off, recommendation of perinatologist was to keep the patient in hospital. The patient received a course of betamethasone for lung maturity early in this h ospital admission. The patient's blood pressure was noted to be increasing. Workup was done for pr eeclampsia with 25 urine collection and -induced hypertension panel. Results of the 24-elida r urine collection revealed a total protein 500 mg. The patient's blood pressures were from systoli c 130s to 150s or diastolic 80s and 90s. On 03/11/2016, the patient complained of headache. The pa tient was given Tylenol; however, there was no relief of headache. The patient was reevaluated by Baldomero Spain, perinatologist, who recommends to go on with delivery by primary section due to p reeclampsia with severe features of headache. The patient is for delivery by primary secti on. The patient also desires sterilization. Risks, benefits, and alternatives of the procedures we re explained to the patient. The patient has been counseled about all of her contraceptive options including all methods of sterilization. It was explained to patient that with bilateral tubal ligat ion there is a chance of failure resulting in ectopic and/or intrauterine . Afte r counseling, the patient said she understood and gave informed consent for the procedures. Dictated By: TIMUR MATA/NTS Conf#: [id number] DID#: [id number]
[2016-03-11] MEDS ORDERED: MEPERIDINE 25 MG INJ IV PRN (10:00)
[2016-03-11] MEDS ORDERED: KETOROLAC 30 MG INJ IV PRN (10:00)
[2016-03-11] MEDS ORDERED: hydrALAzine 20 MG INJ IV PRN (10:00)
[2016-03-11] MEDS ORDERED: LABETALOL HCL 20MG INJ IV PRN (10:00)
[2016-03-11] MEDS ORDERED: HYDROmorphONE (0.2 MG/ML) 10ML SYG IV PRN ×3 (10:00)
[2016-03-11] MEDS ORDERED: TRIMETHOBENZAMIDE 100 MG/ML VIAL IM PRN (10:00)
[2016-03-11] MEDS ORDERED: DIPHENHYDRAMINE 50 MG INJ IV PRN ×2 (10:00)
[2016-03-11] MEDS ORDERED: FENTAnyl 50 MCG/ML VIAL IV PRN ×3 (10:00)
[2016-03-11] MEDS ORDERED: ZOLPIDEM 5 MG TAB PO PRN (10:00)
[2016-03-11] MEDS ORDERED: morphine 2 MG INJ IV PRN ×2 (10:00)
[2016-03-11] MEDS ORDERED: ONDANSETRON 4 MG INJ IV PRN ×2 (10:00)
[2016-03-11] MEDS ORDERED: NALOXONE (0.4 MG/ML) INJ IV PRN (10:00)
[2016-03-11] MEDS ORDERED: MIDAZOLAM 1 MG/ML 2 ML INJ IV PRN (10:00)
[2016-03-11] MEDS ORDERED: EPHEDrine SULFATE 50 MG/5 ML SYG IV PRN (10:00)
[2016-03-11 10:16] LABS: FIBRIN SPLIT PRODUCT <10 ug/ml (<10)
--- NOTE | 2016-03-11 11:11 | CONS ---
DATE OF ADMISSION: 01/27/2016 DATE OF CONSULTATION: HISTORY OF PRESENT ILLNESS: I received a call this morning at 8:[address] España, primary obstet rician, to report that a 24-hour urine protein for the patient has resulted and it is 500 mg. Also, the patient had been experiencing elevated blood pressure. Labs have been normal. Initially, the reason patient was admitted was because of bleeding secondary to complete previa. Also, he reported that the patient this morning has been experiencing one-sided headache. RECOMMENDATIONS: Given the diagnosis of mild preeclampsia, additional headache is going to put the patient in the severe range of preeclampsia and this is an indication for delivery because of the ne urologic symptoms. She has received betamethasone upon admission to the hospital. So, I spoke to Baldomero España and I recommended delivery with indication severe preeclampsia with neurologic symptoms. Dictated By: NICOLE SALCIDO/CISCO Conf#: [id number] DID#: [id number]
--- NOTE | 2016-03-11 11:27 | OPR ---
DATE OF OPERATION: 03/11/2016 PREOPERATIVE DIAGNOSIS: at 32 weeks and 5 days with complete placenta previa, preeclampsi a with severe features and desire for voluntary sterilization. POSTOPERATIVE DIAGNOSIS: at 32 weeks and 5 days with complete placenta previa, preeclamps ia with severe features and desire for voluntary sterilization, omental adhesions. OPERATION PERFORMED: Primary low transverse section, lysis of adhesions, bilateral tubal l igation. SURGEON: Timur España MD ASSISTANCE: Tahira Smith MD ANESTHESIA: Spinal. ANESTHESIOLOGIST: Milton Crump MD PROCEDURE: The patient was taken to operating room and placed on the operating table. After succes sful spinal anesthesia was given, the patient was placed in supine position. The area was prepared and draped in the usual sterile fashion. Spinal anesthesia was tested and was satisfactory. Using a scalpel, Pfannenstiel incision was made about 2 fingerbreadths above the symphysis pubis. The inc ision was carried down to the fascia. The fascia was incised and extended bilaterally with Bovie. Two Marlon's were used to separate the fascia from the muscle. The muscle was dissected in midline down to peritoneum. The peritoneum was bluntly entered. Using a scalpel, a small transverse incisi on was made on the lower segment of uterus. Upon entering the uterine cavity, bandage scissors were inserted to extend the incision bilaterally, curved up. Baby was delivered from cephalic presentat ion. There was a nuchal cord. After suctioning clear of amniotic fluid, the baby was handed off to the administrative supervisor in attendance. Apgars were 9 and 9. The placenta was delivered without difficul ty. The uterus was closed with #1 Monocryl continuous locked. There was omental adhesion noted to the left lateral aspect of the uterus. In order to get to the left adnexal area sharp lysis of adhe mac was performed and adequate hemostasis was assured. Both ovaries and tubes were inspected, all looked normal. The right fallopian tube was grasped with a Chloé clamp. Using 0 plain suture lig ature a 5 cm segment of the right fallopian tube was doubly ligated. Using Metzenbaum scissors, a p ortion of the right fallopian tube above the ligated area was excised and sent to pathology. Same p rocedure was repeated on the left fallopian tube. After assuring hemostasis, the peritoneal cavity was irrigated with warm saline. The peritoneum was closed with 2-0 Vicryl continuous. The fascia w as closed with #1 Vicryl continuous in 2 segments. Subcutaneous tissue was reapproximated with 2-0 plain. The skin was closed with mira. ESTIMATED BLOOD LOSS: 600 mL. COMPLICATIONS: None. COUNTS: All counts were correct. Dictated By: TIMUR ESPAÑA MD GD/NTS Conf#: [id number] DID#: [id number] CC: TAHIRA SMITH MD;*EndCC*
[2016-03-11] MEDS ORDERED: OXYTOCIN 30 UNITS/LR 500 ML IV ONE (11:43)
[2016-03-11] MEDS: OXYTOCIN 30 UNITS/LR 500 ML IV SCH ×2 (12:22→18:22)
[2016-03-11] MEDS ORDERED: OXYTOCIN 30 UNITS/LR 500 ML IV SCH ×2 (12:30)
[2016-03-11] MEDS ORDERED: CARBOPROST 250 MCG INJ IM PRN (12:30)
[2016-03-11] MEDS ORDERED: MISOPROSTOL 200 MCG TAB PR PRN (12:30)
[2016-03-11] MEDS ORDERED: LANOLIN 7 GM TUBE TOP PRN (12:30)
[2016-03-11] MEDS ORDERED: OXYTOCIN 30 UNITS/LR 500 ML IV PRN (12:30)
[2016-03-11] MEDS: SENNA/DOCUSATE NA (8.6MG/50MG) TAB PO SCH (21:00)
[2016-03-12] VITALS (13 sets, daily range): BP systolic 127–145; BP diastolic 66–88; PULSE 70–95; RESP 18–20
[2016-03-12] MEDS: LACTATED RINGER'S 1,000 ML IV SCH ×3 (04:11→20:11)
[2016-03-12] MEDS: MAGNESIUM SULFATE 20 GM/500 ML 500 ML IV SCH (05:03)
[2016-03-12 07:45] LABS: BASOPHILS % 0.2 % (0.0-2.0); EOSINOPHILS % 0.3 % (0.0-7.0); HEMATOCRIT 27.1 % (37.0-47.0); HEMOGLOBIN 9.5 g/dl (12.0-16.0); LYMPHOCYTES # 1.4 10^3/ul (0.8-2.9); LYMPHOCYTES % 10.3 % (15.0-51.0); MEAN CORPUSCULAR HEMOGLOBIN 30.5 pg (29.0-33.0); MEAN CORPUSCULAR VOLUME 87.2 fl (82.0-101.0); MEAN PLATELET VOLUME 7.5 fl (7.4-10.4); MONOCYTES % 7.2 % (0.0-11.0); NEUTROPHIL # 11.4 10^3/ul (1.6-7.5); PLATELET COUNT 228 10^3/UL (140-440); RED CELL DISTRIBUTION WIDTH 14.3 % (11.5-14.5)
[2016-03-12 07:49] LABS: CONDITION 1
[2016-03-12] MEDS: SENNA/DOCUSATE NA (8.6MG/50MG) TAB PO SCH ×2 (08:16→21:57)
[2016-03-12] MEDS ORDERED: INFLUENZA VIRUS VACCINE 0.5 ML (DISPENSING) IM* ONE (09:00)
[2016-03-12] MEDS: OXYCODONE/ACETAMINOPHEN (5/325) TAB PO PRN ×2 (12:38→21:57)
[2016-03-12] MEDS: IBUPROFEN 800 MG TAB PO SCH ×2 (14:16→21:57)
[2016-03-12] MEDS ORDERED: MAGNESIUM HYDROXIDE 30ML CUP PO ONE (17:30)
--- NOTE | 2016-03-12 17:33 | QN ---
Documentation Comment No complaint. Afebrile VSS Abdomen soft ND POD #1 Stable D/C magnesium sulfate Ambulate Advance diet. TIMUR BATEMAN MD Mar 12, 2016 17:33
[2016-03-13] MEDS: LACTATED RINGER'S 1,000 ML IV SCH ×3 (04:11→20:11)
[2016-03-13 04:22] VITALS: BP 128/70; PULSE 72; RESP 20
[2016-03-13] MEDS: IBUPROFEN 800 MG TAB PO SCH ×3 (05:33→21:37)
[2016-03-13] MEDS: OXYCODONE/ACETAMINOPHEN (5/325) TAB PO PRN ×3 (05:33→21:37)
[2016-03-13 07:30] VITALS: BP 140/78; PULSE 92; RESP 18
[2016-03-13] MEDS ORDERED: INFLUENZA VIRUS VACCINE 0.5 ML (DISPENSING) IM* ONE (09:00)
[2016-03-13] MEDS: SENNA/DOCUSATE NA (8.6MG/50MG) TAB PO SCH ×2 (09:57→21:36)
[2016-03-13 15:35] VITALS: BP 135/81; PULSE 99; RESP 19
--- NOTE | 2016-03-13 18:28 | QN ---
Documentation Comment pt doing well no complaints vss exam wnl continue care ZABRINA FLOWERS MD Mar 13, 2016 18:28
[2016-03-13 20:00] VITALS: BP 138/65; PULSE 70; RESP 20
[2016-03-14 03:56] VITALS: BP 140/42; PULSE 74; RESP 20
[2016-03-14] MEDS: LACTATED RINGER'S 1,000 ML IV SCH (04:11)
[2016-03-14] MEDS: OXYCODONE/ACETAMINOPHEN (5/325) TAB PO PRN (05:25)
[2016-03-14] MEDS: IBUPROFEN 800 MG TAB PO SCH ×2 (05:25→14:54)
[2016-03-14 08:42] VITALS: BP 138/62; PULSE 88; RESP 14
[2016-03-14] MEDS ORDERED: DIPHTH/TET/ACEL PERTUSS (ADULT) 0.5 ML VIAL IM* ONE (09:00)
[2016-03-14] MEDS: SENNA/DOCUSATE NA (8.6MG/50MG) TAB PO SCH (09:18)
[2016-03-14 16:56] VITALS: BP 119/57; PULSE 98; RESP 18
--- NOTE | 2016-03-15 14:50 | DS ---
DATE OF ADMISSION: 01/27/2016 DATE OF DISCHARGE: 03/14/2016 ADMITTING DIAGNOSIS: at 26 weeks with placenta previa. HISTORY: A 35-year-old female 4, para 2, AB 1 at admission, para 3 at the time of discharge , was admitted on 01/27/2016 because of vaginal bleeding and contractions associated with complete p lacenta previa. The patient was evaluated by perinatologist and recommendation was to keep the jose ent in hospital until delivery. On 03/11/2016, the patient was noted to have elevated blood pressur e and severe headache. Recommendation of perinatologist was to deliver the patient on 03/11/2016. After obtaining informed consent, the patient underwent a primary low transverse section, l ysis of adhesions, bilateral tubal ligation. The patient's operation was uncomplicated. Postoperat ively, the patient was given clear liquid diet, which was advanced to regular diet, which she tolera mallory well. During the course, the patient was on intravenous magnesium sulfate for seizur e prophylaxis for about 24 hours. The patient's blood pressure improved during the perio d, the patient is discharged on postop day #3 after having had adequate bladder and bowel function. CONDITION ON DISCHARGE: Stable. DISCHARGE INSTRUCTIONS DIET: Regular. ACTIVITIES: Pelvic rest and no strenuous activities. MEDICATIONS: 1. Motrin as needed for pain. 2. Continue with vitamins and ferrous sulfate. Follow up in clinic in 3 days. FINAL DIAGNOSES: 1. , delivered by section. 2. Complete placenta previa. 3. Preeclampsia with severe features. 4. Adhesions. 5. Voluntary sterilization. 6. Mother with single liveborn. Dictated By: TIMUR MATA/CISCO Conf#: [id number] DID#: [id number]
== END 2016-03-14 17:20 | disposition home or self-care (01) | DRG 765 ==
LOC: OBT 08:47 → L-D 08:48 → OBT 10:55 → OBG 10:56 → L-D 03-11 08:39 → PP1 03-11 13:38
PROVIDERS: ADMIT Obstetrics & Gynecology; ATTEND Obstetrics & Gynecology
PROC: 0UB70ZZ Excision of Bilateral Fallopian Tubes, Open Approach (ICD-10-PCS; 2016-03-11)
PROC: 10D00Z1 Extraction of Products of Conception, Low, Open Approach (ICD-10-PCS; principal; 2016-03-11 09:30)
DX: O44.12 Complete placenta previa with hemorrhage, second trimester (principal); O14.13 Severe pre-eclampsia, third trimester; O60.14X0 Preterm labor third trimester with preterm delivery third trimester, not applicable or unspecified; O60.02 Preterm labor without delivery, second trimester; Z3A.26 26 weeks gestation of pregnancy; Z3A.32 32 weeks gestation of pregnancy; Z37.0 Single live birth; O69.81X0 Labor and delivery complicated by cord around neck, without compression, not applicable or unspecified; Z30.2 Encounter for sterilization; O09.522 Supervision of elderly multigravida, second trimester
CPT/HCPCS: 36415; 76815; 76817; 80053; 80069; 80076; 81001; 81003; 82575; 82947; 82950; 83615; 83735; 84560; 85025; 85362; 85384; 85610; 85730; 86592; 86850; 86900; 86901; 86920; 87086; 87340; 88302; 90686; 90715; 96360; 99464; G0463; J0690; J0702; J2270; J2274; J2370; J2590; J2765; J3010; J3475; J7120